=== PATIENT | male | born 1995 | race Hispanic/Latino ===

== ENCOUNTER 2017-06-29 12:56 | Emergency (ER) | payer SELFPAY ==
[~2017-06-29] VITALS: Ht 165.1 cm; Wt 58.0 kg
[2017-06-29 13:38] LABS: URINE BILIRUBIN - DIPSTICK NEGATIVE (NEGATIVE); URINE BLOOD DIPSTICK NEGATIVE (NEGATIVE); URINE COLOR YELLOW; URINE GLUCOSE - DIPSTICK NEGATIVE (NEGATIVE); URINE KETONE 40 mg/dL (NEGATIVE); URINE LEUK ESTERASE NEGATIVE (NEGATIVE); URINE NITRITE - DIPSTICK NEGATIVE (Negative); URINE PROTEIN - DIPSTICK TRACE mg/dL (NEG-TRACE); URINE SPECIFIC GRAVITY 1.015; URINE UROBILINOGEN - DIPSTICK 0.2 E.U./dL (0.2)
[2017-06-29 13:39] LABS: URINE CLARITY CLEAR
[2017-06-29 13:40] LABS: HEMATOCRIT 44.1 % (39.0-50.0); IMMATURE GRANULOCYTES 1.7 % (0.0-1.0); MEAN CELL VOLUME 90.9 fL CALC (80.0-100.0); MEAN CORPUSCULAR HGB 30.9 pG CALC (26.0-32.0); NEUT# 17.58 thou/uL (1.82-7.42); RED BLOOD COUNT 4.85 mill/uL (4.70-6.10); RED CELL DISTRI WIDTH 13.1 % (11.5-15.5)
[2017-06-29 13:46] LABS: ALBUMIN 4.6 g/dL (3.2-5.0); ALKALINE PHOSPHATASE 78 u/l (38-126); ANION GAP 18 (6-22 (CALC)); BILIRUBIN, TOTAL 1.8 mg/dL (0.0-1.4); BUN 16 mg/dL (9-20); BUN/CREATININE RATIO 18 (12-20 (CALC)); CALCIUM 9.7 mg/dL (8.4-10.2); CARBON DIOXIDE 26 mmol/l (22-30); CHLORIDE 101 mmol/l (95-108); CREATININE 0.9 mg/dL (0.7-1.3); GFR > 60 ML/MIN (>=60 (CALC)); GFR FOR AFR.AMER. > 60 ML/MIN (>=60 (CALC)); GLUCOSE 101 mg/dL (75-110); LIPASE 30 u/l (23-300); POTASSIUM 4.3 mmol/l (3.5-5.1); SGOT/AST 25 u/l (17-59); SGPT/ALT 32 u/l (21-72); SODIUM 141 mmol/l (137-146)
[2017-06-29 15:52] VITALS: BP 122/59
== END 2017-06-29 15:52 | DRG 392 ==
LOC: ED 12:56
PROVIDERS: Family Medicine
DX: R10.31 Right lower quadrant pain (principal)
CPT/HCPCS: Q9967

== ENCOUNTER 2017-07-07 13:48 | Inpatient (IN) | payer SELFPAY ==
[~2017-07-07] VITALS: Ht 165.1 cm; Wt 58.0 kg
--- NOTE | 2017-07-07 13:59 | NUR ---
PT TO ROOM FOR TREATMENT
--- NOTE | 2017-07-07 14:20 | NUR ---
PATIENT RESTING ON STRETCHER, RESPS EVEN AND UNLABORED. PATIENT REPORTS PAIN TO LOWER ABD, RATES 8/10. TENDERNESS NOTED TO RLQ AND LLQ UPON PALPATION. CALL LIGHT GIVEN. MD INFORMED OF PATIENT STATUS.
[2017-07-07 15:07] LABS: HEMATOCRIT 41.8 % (39.0-50.0); HEMOGLOBIN 14.5 g/dl (14.0-18.0); IMMATURE GRANULOCYTES 0.6 % (0.0-1.0); MEAN CELL VOLUME 88.2 fL CALC (80.0-100.0); MEAN CORPUSCULAR HGB 30.6 pG CALC (26.0-32.0); MEAN CORPUSCULAR HGB CONC 34.7 g/L CALC (32.0-36.0); NEUT# 18.24 thou/uL (1.82-7.42); RED BLOOD COUNT 4.74 mill/uL (4.70-6.10); RED CELL DISTRI WIDTH 12.2 % (11.5-15.5)
[2017-07-07 15:24] LABS: ALBUMIN 4.4 g/dL (3.2-5.0); ALKALINE PHOSPHATASE 89 u/l (38-126); ANION GAP 19 (6-22 (CALC)); BILIRUBIN, TOTAL 0.9 mg/dL (0.0-1.4); BUN 18 mg/dL (9-20); BUN/CREATININE RATIO 22 (12-20 (CALC)); CALCIUM 9.4 mg/dL (8.4-10.2); CARBON DIOXIDE 29 mmol/l (22-30); CHLORIDE 92 mmol/l (95-108); CREATININE 0.8 mg/dL (0.7-1.3); GFR > 60 ML/MIN (>=60 (CALC)); GFR FOR AFR.AMER. > 60 ML/MIN (>=60 (CALC)); GLUCOSE 112 mg/dL (75-110); POTASSIUM 4.4 mmol/l (3.5-5.1); SGOT/AST 21 u/l (17-59); SGPT/ALT 42 u/l (21-72); SODIUM 135 mmol/l (137-146); TOTAL PROTEIN 7.8 g/dL (6.3-8.2)
[2017-07-07 15:52] LABS: URINE BILIRUBIN - DIPSTICK NEGATIVE (NEGATIVE); URINE BLOOD DIPSTICK TRACE-INTACT (NEGATIVE); URINE COLOR YELLOW; URINE GLUCOSE - DIPSTICK NEGATIVE (NEGATIVE); URINE KETONE NEGATIVE (NEGATIVE); URINE LEUK ESTERASE NEGATIVE (NEGATIVE); URINE NITRITE - DIPSTICK NEGATIVE (Negative); URINE PH 5.5 (4.5-8.0); URINE PROTEIN - DIPSTICK 30 mg/dL (NEG-TRACE); URINE SPECIFIC GRAVITY >=1.030; URINE UROBILINOGEN - DIPSTICK 0.2 E.U./dL (0.2)
[2017-07-07 15:54] LABS: URINE CLARITY CLEAR; URINE SQUAMOUS EPITHELIAL CELL FEW EPI/hpf (0-FEW)
--- NOTE | 2017-07-07 16:04 | NUR ---
PATIENT RESTING ON STRETCHER WITH NO SIGNS OF DISTRESS NOTED. REPORTS PAIN LEVEL 4/10 AT THIS TIME. IV FLUIDS INFUSING WELL. CALL [facility]TH WITHIN REACH, WILL CONTINUE TO MONITOR.
--- NOTE | 2017-07-07 16:50 | NUR ---
PATIENT AMBULATES TO BATHROOM WITH STEADY GAIT. RETURNS TO ROOM. MD INFORMED ABOUT NAUSEA, AWAITING NEW ORDERS.
--- NOTE | 2017-07-07 17:20 | NUR ---
PO CONTRAST COMPLETE. PATIENT MEDICATED FOR NAUSEA. CALL [facility] WITHIN REACH, WILL CONTINUE TO MONITOR.
--- NOTE | 2017-07-07 18:10 | NUR ---
PATIENT DENIES ANY PAIN AT THIS TIME.
--- NOTE | 2017-07-07 18:55 | NUR ---
BEDSIDE REPORT GIVEN TO GEMINI XIAO. CARE RELINQUISHED AT THIS TIME.
--- NOTE | 2017-07-07 18:56 | NUR ---
RECEIVED REPORT IN ROOM INTRODUCED SELF TO PT. NO C/O.
--- NOTE | 2017-07-07 19:20 | NUR ---
PT. TAKEN TO [place] FOR CT SCAN VIA [facility].
[2017-07-07] MEDS ORDERED: AMOX/K CLAV875 M1 PO (20:15)
--- NOTE | 2017-07-07 22:40 | NUR ---
pt. returned from md cari in room to discuss clinical findings with pt. in his [place] language of [place], pt. verbalized understanding.
--- NOTE | 2017-07-07 22:50 | NUR ---
ivf and iv abt. started as per md order.
--- NOTE | 2017-07-07 23:32 | NUR ---
Admission Note Report Given to: ARGENTINA MARROQUIN Transported by: Wheelchair X Stretcher Transported with: X Nurse Transporter X Patent IV O2 Supervisor [employer]
--- NOTE | 2017-07-07 23:33 | NUR ---
AMBULATING TO BR GAIT SLOW AND STEADY.
[2017-07-07 23:50] VITALS: BP 105/61
--- NOTE | 2017-07-07 23:50 | NUR ---
PT TRANSFERRED TO FLOOR VIA STRETCHER IN STABLE CONDITION ACCOMPANIED BY [place];PT AMBULATED WITH A STEADY GAIT TO STANDING SCALE AND BEDSIDE;PT ORIENTED TO ROOM AND CALL LIGHT SYSTEM AND VERBALIZES UNDERSTANDING;VS OBTAINED BY YON NICOLE;ASSESSMENT COMPLETED;PRATIMA BOWER ASSISTED IN TRANSLATION;PT REPORTS THAT HE HAD BEEN D/C FROM [facility] ON Monday07/03/17 AND WAS GIVEN ABX TO TAKE AT HOME;PT EDUCATED ON PAIN SCALE AND REPORTS,CURRENT ABDOMINAL PAIN LEVEL IS 2/10 ON THE PAIN SCALE;CLEAR LUNG SOUNDS;PERRLA;RESPIRATIONS EVEN AND UNLABORED ON RA;#20G TO RIGHT FOREARM INFUSING D5 NS @ 125ML/HR WELL,SITE APPEARS HEALTHY;#20G TO RAC FLUSHED AND PATENT;CURRENT TEMP 101.4;AC LOWERED,BLANKETS REMOVED AND ICE PACKS PROVIDED;WILL MONITOR FOR EFFECTIVENESS;PT REPORTS TO BE HAVING LOOSE BM WITH THE MOST RECENT TODAY 07/07/17;PT EDUCATED ON NPO DIET AND VERBALIZES UNDERSTANDING;ABX RX OBTAIN FROM PT AND SENT TO PHARMACY;SAFETY PRECAUTIONS REINFORCED;PT VOICES NO COMPLAINTS OR NEEDS AT THIS TIME;PT EDUCATED TO CALL FOR ASSISTANCE IF NEEDED;CALL LIGHT IN REACH;WILL CONTINUE TO MONITOR
--- NOTE | 2017-07-08 | NUR ---
PT. TRANSFERED TO AL VIA STRETCHER, NO C/O. IVF AND IV ABT. INFUSING WELL, NO REDNESS OR EDEMA NOTED.
--- NOTE | 2017-07-08 02:14 | NUR ---
CAll PLACED TO REGARDING PT ELEVATED TEMP;AWAITING RETURN CALL
--- NOTE | 2017-07-08 02:37 | NUR ---
SECOND CALL PLACED TO ,VOICEMAIL LEFT
--- NOTE | 2017-07-08 02:45 | NUR ---
SPOKE WITH RUSS,NURSING SENIOR VALIDATION ENGINEER
--- NOTE | 2017-07-08 02:46 | NUR ---
NEW ORDER RECEIVED FROM
--- NOTE | 2017-07-08 02:50 | NUR ---
PT MEDICATED WITH TYLENOL 1000MG FOR TEMP OF 101.4;WILL MONITOR FOR EFFECT;PT DENIES ANY OTHER NEEDS AT THIS TIME
[2017-07-08 03:50] VITALS: BP 104/63
--- NOTE | 2017-07-08 04:20 | NUR ---
PT APPEARS TO BE SLEEPING IN SUPINE POSITION;VS OBTAINED BY YON NICOLE;CURRENT TEMP 99.4;PT VOICES NO COMPLAINTS OF PAIN OR DISCOMFORTS AT THIS TIME;RESPIRATIONS EVEN AND UNLABORED ON RA;PT EDUCATED TO CALL FOR ASSISTANCE IF NEEDED;CALL LIGHT IN REACH;WILL CONTINUE TO MONITOR
--- NOTE | 2017-07-08 06:00 | NUR ---
CALLED AND NEW ORDERS RECEIVED
--- NOTE | 2017-07-08 07:00 | NUR ---
SHIFT CHANGE REPORT FROM ARGENTINA, PT SLEEPING BUT AROUSES TO VERBAL STIMULI, C/O DULL PAIN @ 2/10 TO RLQ, IVF INFUSING, CALL LEE IN REACH. BUYING AGENT NEEDED FOR COMMUNICATION.
[2017-07-08 08:13] VITALS: BP 106/51
--- NOTE | 2017-07-08 09:26 | NUR ---
DR ESCAMILLA HERE CONSULTING WITH PT, WROTE ORDERS AND VERBALLY REPORTED ORDERS OF CLEAR LIQUID MEAL, STOOL CX, CT ABD WITH ORAL CONTRAST AND CONTINUE ABT. REQUEST FOR CT RESULT FROM [facility] ALSO.
[2017-07-08 11:52] LABS: HEMATOCRIT 40.2 % (39.0-50.0); HEMOGLOBIN 13.5 g/dl (14.0-18.0); IMMATURE GRANULOCYTES 0.6 % (0.0-1.0); MEAN CELL VOLUME 90.5 fL CALC (80.0-100.0); MEAN CORPUSCULAR HGB 30.4 pG CALC (26.0-32.0); MEAN CORPUSCULAR HGB CONC 33.6 g/L CALC (32.0-36.0); NEUT# 16.93 thou/uL (1.82-7.42); RED BLOOD COUNT 4.44 mill/uL (4.70-6.10); RED CELL DISTRI WIDTH 12.6 % (11.5-15.5)
--- NOTE | 2017-07-08 11:59 | NUR ---
RESTIG IN BED, NO NEW COMPLAINS, CLEAR LIQUID MEAL SERVED PER MD'S ORDER, WILL CONTINUE TO MONITOR.
--- NOTE | 2017-07-08 12:08 | NUR ---
DR ESCAMILLA INFORMED VIA PHONE OF CT RESULT FROM [facility] AND ORDERED PERCUTANEOUS DRAINAGE OF ABSCESS, ORDER PLACED.
[2017-07-08 12:15] LABS: ANION GAP 15 (6-22 (CALC)); BUN 14 mg/dL (9-20); BUN/CREATININE RATIO 20 (12-20 (CALC)); CALCIUM 8.7 mg/dL (8.4-10.2); CARBON DIOXIDE 25 mmol/l (22-30); CREATININE 0.7 mg/dL (0.7-1.3); GFR > 60 ML/MIN (>=60 (CALC)); GFR FOR AFR.AMER. > 60 ML/MIN (>=60 (CALC)); GLUCOSE 92 mg/dL (75-110); POTASSIUM 4.6 mmol/l (3.5-5.1); SODIUM 139 mmol/l (137-146)
--- NOTE | 2017-07-08 12:16 | NUR ---
DR VANGEAS INFORMED OF DR ESCAMILLA'S ORDER.
[2017-07-08 12:17] LABS: C. DIFFICILE TOXIN A&B NEGATIVE (NEGATIVE)
[2017-07-08 12:26] LABS: CHLORIDE 104 mmol/l (95-108)
[2017-07-08 12:50] VITALS: BP 111/59
--- NOTE | 2017-07-08 15:10 | NUR ---
ORDER FOR PEUCUTANEOUS DRAINAGE WILL NOT BE DONE TILL MONDAY WHEN IR STAFF WILL BE HERE PER RADIOLOGY DEPT. DR ESCAMILLA NOTIFIED.
[2017-07-08 16:41] VITALS: BP 115/57
[2017-07-08 20:00] VITALS: BP 109/58
--- NOTE | 2017-07-08 20:00 | NUR ---
PT IN BED A/O X3, RESPIRATIONS EVEN AND UNLABORED ON RA. D5NS INFUSING TO LFA AT 100CC/HR. C/O RIGHT ABDOMINAL PAIN 09/16. TEMP 100.1 WAS MEDICATED WITH TYLENOL AT 1650. PO FLUIDS IN REACH. URINAL AT BED SIDE. WILL CONTINUE TO MONITOR.
--- NOTE | 2017-07-09 00:43 | NUR ---
C/O ABDOMINAL PAIN 01/14, MEDICATED WITH MORHPHINE 2MG IV, TEMP 102.2 MEDICATED WITH TYLENOL 650MG PO. ZOSYN SPIKED AND INFUSING TO RFA WITH NO COMPLICATIONS. ICE PACKS APPLIED TO FOREHEAD AND CHEST, WILL CONTINUE TO MONITOR.
--- NOTE | 2017-07-09 01:57 | NUR ---
TEMP DOWN TO 99.7, AND ADMITS TO PAIN RELIEF 11/14. CALL LIGHT IN REACH, IV FLUIDS INFUSING TO RFA WITH NO COMPLICATIONS, GOOD BLOOD RETURN. CALL LIGHT IN REACH.
--- NOTE | 2017-07-09 02:56 | NUR ---
RESTING IN BED WITH EYES CLOSED, RESPIRATIONS EVEN AND UNLABORED.
[2017-07-09 04:22] VITALS: BP 98/59
[2017-07-09 05:40] LABS: HEMATOCRIT 34.5 % (39.0-50.0); HEMOGLOBIN 11.8 g/dl (14.0-18.0); IMMATURE GRANULOCYTES 0.5 % (0.0-1.0); MEAN CELL VOLUME 89.6 fL CALC (80.0-100.0); MEAN CORPUSCULAR HGB 30.6 pG CALC (26.0-32.0); MEAN CORPUSCULAR HGB CONC 34.2 g/L CALC (32.0-36.0); NEUT# 13.94 thou/uL (1.82-7.42); RED BLOOD COUNT 3.85 mill/uL (4.70-6.10); RED CELL DISTRI WIDTH 12.4 % (11.5-15.5)
--- NOTE | 2017-07-09 07:22 | NUR ---
SHIFT CHANGE REPORT FROM FRANCISCO JAVIER DANIELS SLEEPING AT THIS TIME BUT AROUSES TO VERBAL STIMULI, C/O MINIMAL PAIN TO ABD, IVF INFUSING, CALL LEE IN REACH.
[2017-07-09 08:40] VITALS: BP 106/54
--- NOTE | 2017-07-09 11:42 | NUR ---
DR ESCAMILLA HERE AND ROUNDED WITH PT, REQUEST TO HAVE PT TRANSFERRED TO [facility] FOR IR CONSULT AND PROCEDURE, DR VANEGAS NOTIFIED, WILL CONTINUE TO PROCESS ORDERS.
--- NOTE | 2017-07-09 11:45 | NUR ---
RAYMOND FROM [facility] CALLED FOR INFORMATION WHICH WAS FURNISHED, WILL CONTINUE TO MONITOR AND PROCESS ORDERS IN TIMELY MANNER.
[2017-07-09 14:03] VITALS: BP 112/51
--- NOTE | 2017-07-09 14:15 | NUR ---
RAYMOND FROM [facility] CALLED WITH BED # [id number], DR BAGLEY IS RECEIVING MD.
--- NOTE | 2017-07-09 14:30 | NUR ---
[facility] NOTIFIED OF TRANSFER OF PT TO [facility], SPOKE TO JOSE, SAID WILL SEND TRANSPORT RIC.
--- NOTE | 2017-07-09 14:45 | NUR ---
REPORT GIVEN TO DIANDRA AT [facility] AT THIS TIME.
--- NOTE | 2017-07-09 14:58 | NUR ---
[facility] HERE TO RECEIVE PT FOR TRANSFER TO [facility] AT THIS TIME, PT ALERT AND ORIENTED X 3, AZERI SPEAKING ONLY, IVF FLUIDS DISCONTINUED FOR TRANSPORT, NO TUBES/DRAINS ATTATCHED. ALL BELONGINGS PACKED IN PT'S BAG AND ACCOMPANYING PT.
--- NOTE | 2017-07-09 15:01 | NUR ---
Discharge instructions given. Patient verbalizes understanding of same. Discharged in stable condition via [facility] with *Other. All belongings sent with pt.
== END 2017-07-09 15:00 | disposition short-term general hospital (02) | DRG 373 ==
LOC: ED 13:48 → ED-I 21:00 → ED 22:29 → MS2 22:30
PROVIDERS: Emergency Medicine; Surgery; ADMIT Internal Medicine; ATTEND Internal Medicine
PROC: 3E0234Z Introduction of Serum, Toxoid and Vaccine into Muscle, Percutaneous Approach (ICD-10-PCS; principal; 2017-07-09)
DX: K35.3 Acute appendicitis with localized peritonitis (principal); Z23 Encounter for immunization